=== PATIENT | female | born 1975 | race African-American/Black ===

== ENCOUNTER → 2020-04-29 | Outpatient (CLI) | payer OTHER ==
--- NOTE | 2020-04-29 13:45 | KCIC ---
EXAMINATION: MRI LEFT LOWER EXTREMITY JOINT WITHOUT INDICATIONS: left knee pain, swelling. Chronic pain, worsening in the last month. Anterolateral tende rness. TECHNIQUE: Multiplanar multisequence MRI of the left knee was obtained without contrast. COMPARISON: None FINDINGS: MENISCI: The medial and lateral menisci are intact. LIGAMENTS: The anterior and posterior cruciate ligaments are intact. The medial collateral ligament and lateral collateral ligament complex are intact. EXTENSOR MECHANISM: The quadriceps and patellar tendons are intact. There is mild edema in the super olateral aspect of Hoffa fat pad. Suprapatellar fat pad is normal. Retinacula are intact. BONES AND CARTILAGE: There are multiple deep cartilage fissures with delamination along the patella and some deep partial-thickness cartilage loss far inferiorly. Multiple subchondral cysts in the perla lla. Trochlear cartilage is intact. Medial and lateral compartment cartilage is intact. There is no a cute fracture. Marrow signal is normal. OTHER: Small joint effusion. No Rojas cyst. Muscles and subcutaneous soft tissue are normal. IMPRESSION: 1. Patellofemoral chondromalacia. 2. Small joint effusion Electronically signed by: Chantel Spears MD (04/29/2020 1:42 PM) [id number]
== END ==
LOC: KCIC MRI 10:35 → EDSEX 11:00
PROVIDERS: ATTEND Family Medicine
DX: M94.262 Chondromalacia, left knee (principal); M25.462 Effusion, left knee
CPT/HCPCS: 73721